=== PATIENT | female | born 1955 | race Caucasian/White ===

== ENCOUNTER → 2018-12-10 | Outpatient (CLI) | payer MEDICARE ==
--- NOTE | 2018-12-10 14:06 | CTL ---
EXAMINATION TYPE: CT Low Dose Lung DATE OF EXAM ORDERED: 12/10/2018 HISTORY: History of tobacco use. Lung cancer screening CT DLP: 73.[address] CTDI: 2.18 mGy Automated exposure control for dose reduction was used. SCREENING VISIT: 2 COMPARISON: Prior CT 10/30/2017 TECHNIQUE: Low dose computed tomography scan was performed through the chest at 1 mm thick sections a nd reconstructed images in the coronal plane at [address] DIAGNOSTIC QUALITY: Satisfactory FINDINGS: LUNG NODULES: None. LUNGS: COPD: Severity: Mild to moderate Fibrosis: Severity: Biapical fibrosis is stable Lymph nodes: None Other findings: There is bronchial wall thickening. RIGHT PLEURAL SPACE: Effusion: None Calcification: None Thickening: Mild Pneumothorax: None LEFT PLEURAL SPACE: Effusion: None Calcification: None Thickening: Mild Pneumothorax: None HEART: Heart Size: Normal, stable Coronary calcification: Mild as on prior Pericardial effusion: None OTHER FINDINGS: Upper abdomen: Probable hiatal hernia again noted, patient is post cholecystectomy. Bony thorax: Thoracic spondylosis again seen, multilevel Schmorl's node formation Supraclavicular region: No adenopathy Other: No significant finding IMPRESSION: No significant interval change, no suspicious nodule. Emphysematous changes and pleural s carring are stable. FOLLOW UP CT CHEST RECOMMENDATION: Annual low dose lung screening CT CT LUNG RAD: Lung rad 1 negative
== END | disposition home or self-care (01) ==
LOC: RADCTMAIN 12:26
PROVIDERS: ATTEND Family Medicine
DX: J43.9 Emphysema, unspecified (principal); J94.8 Other specified pleural conditions; Z87.891 Personal history of nicotine dependence

== ENCOUNTER → 2019-05-14 | Outpatient (CLI) | payer MEDICARE ==
[~2019-05-14] MED LIST: REGADENOSON 0.4 MG/5 ML SYRINGE IV ONE
--- NOTE | 2019-05-14 11:16 | NM ---
EXAMINATION TYPE: NM stress lexiscan cardiolite DATE OF EXAM: 05/14/2019 COMPARISON: NONE HISTORY: Shortness of breath, chest pressure, palpitations, family history of coronary artery disease and history of prior tobacco abuse. Patient also states there is a history of emphysema. TECHNIQUE: After the intravenous administration of 9.8 mCi Tc 99m Sestamibi - Cardiolite resting SPE CT images acquired 45 minutes post injection. The patient received 0.4mg Lexiscan, 26.6 mCi Tc 99m Sestamibi - Stress images obtained [address] injection FINDINGS: Review of stress and rest SPECT images demonstrates no distinct perfusion abnormality. Gated analysi s shows normal wall motion with an estimated left ventricular ejection fraction of 62 %. TID is calcu lated at 0.97, within normal limits. IMPRESSION: No scintigraphic evidence for reversible ischemia. Estimated left ventricular ejection fraction of 62 %.
--- NOTE | 2019-05-14 15:41 | EST ---
EXERCISE STRESS AGE: 64 SEX: F HT: 5'1" WT: 184 PROTOCOL: Lexiscan Cardiolite Stress Test HEART RATE REST: 84 BLOOD PRESSURE REST: 143/92 MAXIMUM HEART RATE ACHIEVED: 118 MAXIMUM BLOOD PRESSURE: 147/89 INDICATIONS: Chest pain. CLINICAL INFORMATION: Baseline rhythm is sinus mechanism,. rate of 84, normal axis and intervals. Normal echocardiogram. Baseline blood pressure 143/92 mmHg. Patient received injection of Lexiscan, electrocardiograph monitoring revealed no evidence of diagnostic ischemic ST deviation. Cardiolite was injected at peak exercise. CONCLUSION: 1. Nondiagnostic electrocardiograph stress testing. 2. Nuclear images will be reported separately. MMODL / IJN: [id number] /
== END | disposition home or self-care (01) ==
LOC: RADNMMAIN 08:24
PROVIDERS: ATTEND Family Medicine
DX: R06.02 Shortness of breath (principal); R07.9 Chest pain, unspecified; Z82.41 Family history of sudden cardiac death
CPT/HCPCS: 93017; 78452; A9500; J2785

== ENCOUNTER → 2019-06-18 | Outpatient (CLI) | payer MEDICARE ==
--- NOTE | 2019-06-18 14:27 | BD ---
EXAMINATION TYPE: Axial Bone Density DATE OF EXAM: 06/18/2019 COMPARISON: NONE CLINICAL HISTORY: Asymptomatic menopausal state, postmenopausal female Height: 5 FT 1/2 IN Weight: 147 FRAX RISK QUESTIONS: Secondary Osteoporosis: 3. Menopause before 45: YES RISK FACTORS HISTORY OF: Active: YES Postmenopausal woman: TOTAL HYST AGE 41 Take estrogen and/or progesterone medications: WAS ON FOR SHORT TIME AFTER HYST MEDICATIONS: Additional Medications: INHALERS FOR COPD SPIRIVA Additional History: PT HAS COPD ON INHALERS FOR 10 YEARS EXAM MEASUREMENTS: Bone mineral densitometry was performed using the [id number] Digital System. Bone mineral density as measured about the Lumbar spine is: ----- L1-L4(G/cm2): 0.967 T Score Values are as follows: ----- L2: -1.8 ----- L3: -1.1 ----- L4: -2.4 ----- L1-L4: -1.8 BASELINE Bone mineral density about the R hip (g/cm2): 0.920 Bone mineral density about the L hip (g/cm2): 0.943 T Score values are as follows: -----R Neck: -0.8 -----L Neck: -0.7 -----R Total: 0.2 -----L Total: 0.1 BASELINE IMPRESSION: Osteopenia (T Score between -2.5 and -1). There is slightly increased risk of fracture and the patient may be considered for treatment. Re-Screen 2-5 years. NOTE: T-SCORE=SD OF THE YOUNG ADULT MEAN.
--- NOTE | 2019-06-21 09:55 | MM ---
Reason for exam: screening (asymptomatic). Last mammogram was performed 7 years and 11 months ago. History: Patient is postmenopausal. Took estrogen for 3 years. Physical Findings: A clinical breast exam by your physician is recommended on an annual basis and results should be correlated with mammographic findings. MG Screening Mammo w CAD Bilateral CC and MLO view(s) were taken. Prior study comparison: August 02, 2011, bilateral digital screening mammo w/CAD. January 12, 2008, bilateral screening mammogram w/CAD. There are scattered fibroglandular densities. There is no discrete abnormality. No significant changes when compared with prior studies. ASSESSMENT: Negative, BI-RAD 1 RECOMMENDATION: Routine screening mammogram of both breasts in 1 year.
== END | disposition home or self-care (01) ==
LOC: RADMAMWWP 10:01
PROVIDERS: ATTEND Family Medicine
DX: Z12.31 Encounter for screening mammogram for malignant neoplasm of breast (principal); M85.80 Other specified disorders of bone density and structure, unspecified site; Z78.0 Asymptomatic menopausal state
CPT/HCPCS: 77067; 77080

== ENCOUNTER → 2020-08-18 | Outpatient (CLI) | payer MEDICARE ==
--- NOTE | 2020-08-18 12:32 | CT ---
EXAMINATION TYPE: CT chest wo con DATE OF EXAM: 08/18/2020 COMPARISON: CT low dose lung screening 12/09/2018. CT chest 03/19/2012. HISTORY: solitary lung nodule CT DLP: 283.2 mGycm Automated exposure control for dose reduction was used. CONTRAST: CT scan of the chest is performed without intravenous contrast. FINDINGS: LUNGS: There is redemonstrated extensive biapical pleural thickening and scarring, and marked emphyse matous change. No concerning parenchymal mass or nodule identified. No pleural effusion. No pneumotho rax. The tracheobronchial tree is patent. MEDIASTINUM/SOFT TISSUES: No axillary, hilar, or mediastinal lymphadenopathy greater than 1 cm. Cardi ac size is normal. No pericardial effusion. No thoracic aortic aneurysm. UPPER ABDOMEN: Small hiatal hernia. Left adrenal gland benign adrenal adenoma is unchanged versus 201 2. OSSEOUS: Degenerative changes of the spine. IMPRESSION: Demonstrate marked emphysema and extensive biapical pleural thickening and scarring. No concerning pa renchymal mass or nodule.
== END | disposition home or self-care (01) ==
LOC: RADCTMAIN 08:47
PROVIDERS: ATTEND Family Medicine
DX: J43.9 Emphysema, unspecified (principal)
CPT/HCPCS: 71250